=== PATIENT | female | born 1955 | race Caucasian/White ===

== ENCOUNTER 2022-01-10 13:24 | Inpatient (IN) | payer OTHER ==
[~2022-01-10] VITALS: Ht 165.1 cm; Wt 90.7 kg
[2022-01-10] MEDS: BLOOD SUGAR DIAGNOSTIC STRIP TEST SCH
[2022-01-10] MEDS: GUAIFENESIN/DM 600MG/30MG ER TAB 12HR PO SCH
[2022-01-10] MEDS ORDERED: ALBUTEROL (0.083%) 2.5MG/3ML NEB HHN STA ×2 (13:45→17:29)
[2022-01-10] MEDS ORDERED: IPRATROPIUM BROMIDE (0.02%) 0.5MG/2.5ML NEB HHN STA ×2 (13:45→17:29)
[2022-01-10 14:14] LABS: BASOPHILS % 0.3 % (0.0-2.0); EOSINOPHILS % 3.2 % (0.0-5.0); HEMOGLOBIN. 12.7 g/dL (12.0-16.0); MEAN CORPUSCULAR HEMOGLOBIN 28.9 pg (28.0-32.0); MEAN CORPUSCULAR VOLUME 86.6 fL (81.0-99.0); MEAN PLATELET VOLUME 7.9 fl (7.4-10.4); MONOCYTES % 5.1 % (2.0-8.0); NEUTROPHILS % 72.4 % (40.0-76.0); PLATELET 256 x1000/uL (130-400); RED BLOOD CELL COUNT 4.39 mill/uL (4.2-5.4); RED CELL DISTRIBUTION WIDTH 13.8 % (11.6-14.6)
[2022-01-10 14:15] LABS: CHLORIDE 100 mEq/L (98-107)
[2022-01-10] MEDS ORDERED: IPRATROPIUM BROMIDE (0.02%) 0.5MG/2.5ML NEB HHN NR (17:00)
[2022-01-10] MEDS ORDERED: ALBUTEROL (0.083%) 2.5MG/3ML NEB HHN NR (17:00)
[2022-01-10] MEDS ORDERED: MAGNESIUM 2 G PREMIX 50 ML IV STA (17:29)
[2022-01-10] MEDS ORDERED: DEXTROSE 50% WATER 50ML SYRINGE IV PRN (19:30)
[2022-01-10] MEDS ORDERED: NITROGLYCERIN 0.4MG TABLET SL SL PRN (19:30)
[2022-01-10] MEDS ORDERED: CLONIDINE 0.1MG TABLET PO PRN (19:30)
[2022-01-10] MEDS ORDERED: IPRATROPIUM/ALBUTEROL 0.5-3(2.5)MG/3ML NEB NEB PRN (19:30)
[2022-01-10] MEDS ORDERED: ACETAMINOPHEN 325MG TABLET PO PRN ×2 (19:30)
[2022-01-10] MEDS ORDERED: ONDANSETRON HCL 4MG/2ML INJ IV PRN (19:30)
[2022-01-10] MEDS ORDERED: MAGNESIUM/ALUMINUM HYDROXIDE/SIMETHICONE 30ML UDC PO PRN (19:30)
[2022-01-10] MEDS ORDERED: LEVOFLOXACIN 500MG PREMIX 100 ML IV SCH (20:00)
[2022-01-10 20:28] LABS: FOLIC ACID (FOLATE) SERUM 13.9 ng/mL (>5.38)
[2022-01-10] MEDS ORDERED: ZOLPIDEM TARTRATE 5MG TABLET PO PRN (21:00)
[2022-01-10] MEDS ORDERED: INSULIN LISPRO 100 UNITS/ML SUBCUT SCH (21:00)
[2022-01-10 21:51] LABS: *AMPHETAMINES SCREEN URINE NEGATIVE (NEGATIVE); *BARBITURATES SCREEN URINE NEGATIVE (NEGATIVE); *BENZODIAZEPINES SCREEN URINE NEGATIVE (NEGATIVE); *COCAINE SCREEN URINE NEGATIVE (NEGATIVE); CANNABINOID URINE SCREEN NEGATIVE (NEGATIVE); METHADONE URINE SCREEN NEGATIVE (NEGATIVE); OPIATES URINE SCREEN NEGATIVE (NEGATIVE); PHENCYCLIDINE URINE SCREEN NEGATIVE (NEGATIVE)
[2022-01-10] MEDS ORDERED: METHYLPREDNISOLONE SOD SUCC 125 MG/2 ML VIAL IV SCH (22:00)
[2022-01-11] VITALS: BP 137/69
[2022-01-11] MEDS ORDERED: ALBU18HF2 IH (00:28)
[2022-01-11] MEDS ORDERED: INSU100V37 SQ (00:28)
[2022-01-11] MEDS ORDERED: FLUT1BLS3 INH (00:28)
[2022-01-11] MEDS ORDERED: THEO400T PO (00:28)
[2022-01-11] MEDS ORDERED: PANT40TA51 PO (00:28)
[2022-01-11] MEDS ORDERED: IPRA3AMP31 IH (00:28)
[2022-01-11] MEDS ORDERED: ASPI-867 MT (00:28)
[2022-01-11] MEDS ORDERED: UMEC1DIS INH (00:28)
[2022-01-11] MEDS ORDERED: MELO-106 PO (00:28)
[2022-01-11] MEDS ORDERED: INSU100V51 (00:28)
[2022-01-11] MEDS ORDERED: AZEL137S7 NS (00:28)
[2022-01-11] MEDS: INSULIN LISPRO 100 UNITS/ML SUBCUT SCH ×5 (00:54→21:34)
[2022-01-11] MEDS: ENOXAPARIN 40MG/0.4ML SYR SUBCUT SCH ×2 (00:56→21:35)
[2022-01-11] MEDS: DILTIAZEM HCL 60MG TABLET PO SCH ×4 (00:56→18:21)
[2022-01-11] MEDS: FAMOTIDINE 20MG TABLET PO SCH ×3 (00:57→21:35)
[2022-01-11] MEDS ORDERED: *PATIENT'S OWN MEDICATION STORAGE XX SCH (01:30)
[2022-01-11] MEDS: LEVOFLOXACIN 500MG PREMIX 100 ML IV SCH (01:55)
[2022-01-11 04:00] VITALS: BP 117/80
[2022-01-11] MEDS: BLOOD SUGAR DIAGNOSTIC STRIP TEST SCH ×4 (06:38→21:33)
[2022-01-11] MEDS: METHYLPREDNISOLONE SOD SUCC 125 MG/2 ML VIAL IV SCH ×3 (06:38→21:38)
[2022-01-11] MEDS: IPRATROPIUM/ALBUTEROL 0.5-3(2.5)MG/3ML NEB HHN SCH ×5 (07:45→23:55)
[2022-01-11 08:00] VITALS: BP 143/56
[2022-01-11] MEDS: GUAIFENESIN/DM 600MG/30MG ER TAB 12HR PO SCH ×2 (09:00→21:00)
[2022-01-11] MEDS: ASPIRIN 325MG EC TABLET PO SCH (09:06)
[2022-01-11 12:00] VITALS: BP 127/77
[2022-01-11 16:00] VITALS: BP 116/56
[2022-01-11] MEDS: GUAIFENESIN 200MG/10ML SUGAR FREE UDC PO PRN ×2 (18:13→21:35)
[2022-01-11 20:00] VITALS: BP 113/51
[2022-01-12] VITALS: BP 123/57
[2022-01-12] MEDS: DILTIAZEM HCL 60MG TABLET PO SCH ×5 (00:38→23:59)
[2022-01-12] MEDS: LEVOFLOXACIN 500MG PREMIX 100 ML IV SCH (02:16)
[2022-01-12] MEDS: IPRATROPIUM/ALBUTEROL 0.5-3(2.5)MG/3ML NEB HHN SCH ×4 (03:49→19:50)
[2022-01-12 04:00] VITALS: BP 140/68
[2022-01-12] MEDS: METHYLPREDNISOLONE SOD SUCC 125 MG/2 ML VIAL IV SCH (05:48)
[2022-01-12] MEDS: GUAIFENESIN 200MG/10ML SUGAR FREE UDC PO PRN ×2 (05:52→08:50)
[2022-01-12] MEDS: INSULIN LISPRO 100 UNITS/ML SUBCUT SCH ×4 (06:12→20:40)
[2022-01-12] MEDS: BLOOD SUGAR DIAGNOSTIC STRIP TEST SCH ×4 (07:20→21:00)
[2022-01-12 08:00] VITALS: BP 141/71
[2022-01-12] MEDS: ASPIRIN 325MG EC TABLET PO SCH (08:51)
[2022-01-12] MEDS: FAMOTIDINE 20MG TABLET PO SCH ×2 (08:51→21:30)
[2022-01-12] MEDS: GUAIFENESIN/DM 600MG/30MG ER TAB 12HR PO SCH ×2 (09:00→21:30)
[2022-01-12] MEDS ORDERED: INSULIN GLARGINE 100 UNITS/ML SUBCUT SCH (10:30)
[2022-01-12 12:00] VITALS: BP 150/55
[2022-01-12] MEDS: METHYLPREDNISOLONE SOD SUCC 40 MG/ML VIAL IV SCH ×2 (13:12→21:30)
[2022-01-12] MEDS ORDERED: INSULIN LISPRO 100 UNITS/ML SUBCUT NR (13:30)
[2022-01-12 16:00] VITALS: BP 132/60
[2022-01-12 20:00] VITALS: BP 152/73
[2022-01-12] MEDS: INSULIN GLARGINE 100 UNITS/ML SUBCUT SCH (21:27)
[2022-01-12] MEDS: ENOXAPARIN 40MG/0.4ML SYR SUBCUT SCH (21:29)
[2022-01-13] VITALS: BP 125/57
[2022-01-13] MEDS: IPRATROPIUM/ALBUTEROL 0.5-3(2.5)MG/3ML NEB HHN SCH ×6 (00:19→20:57)
[2022-01-13 04:00] VITALS: BP 135/58
[2022-01-13] MEDS: METHYLPREDNISOLONE SOD SUCC 40 MG/ML VIAL IV SCH (05:53)
[2022-01-13] MEDS: DILTIAZEM HCL 60MG TABLET PO SCH ×3 (06:15→17:17)
[2022-01-13] MEDS: BLOOD SUGAR DIAGNOSTIC STRIP TEST SCH ×4 (06:18→21:00)
[2022-01-13 07:31] LABS: HEMATOCRIT 36.9 % (36.0-48.0); HEMOGLOBIN 12.2 g/dL (12.0-16.0); MEAN CORPUSCULAR HEMOGLOBIN 29.2 pg (28.0-32.0); PLATELET 249 x1000/uL (130-400); RED BLOOD CELL COUNT 4.19 mill/uL (4.2-5.4); RED CELL DISTRIBUTION WIDTH 13.5 % (11.6-14.6)
[2022-01-13 08:00] VITALS: BP 126/57
[2022-01-13] MEDS: ASPIRIN 325MG EC TABLET PO SCH (08:10)
[2022-01-13] MEDS: FAMOTIDINE 20MG TABLET PO SCH ×2 (08:10→21:00)
[2022-01-13] MEDS: GUAIFENESIN 200MG/10ML SUGAR FREE UDC PO PRN (08:10)
[2022-01-13] MEDS: INSULIN LISPRO 100 UNITS/ML SUBCUT SCH ×4 (08:11→21:00)
[2022-01-13 08:15] LABS: CHLORIDE 97 mEq/L (98-107)
[2022-01-13] MEDS: GUAIFENESIN/DM 600MG/30MG ER TAB 12HR PO SCH ×2 (08:16→21:00)
[2022-01-13] MEDS: INSULIN GLARGINE 100 UNITS/ML SUBCUT SCH ×2 (10:24→21:54)
[2022-01-13] MEDS ORDERED: LEVOFLOXACIN 500MG TABLET PO SCH (11:00)
[2022-01-13 12:00] VITALS: BP 144/62
[2022-01-13] MEDS: PREDNISONE 20MG TABLET PO SCH (12:21)
[2022-01-13 16:00] VITALS: BP 120/49
[2022-01-13] MEDS: DOCUSATE SODIUM 100MG CAPSULE PO PRN (17:58)
[2022-01-13 20:00] VITALS: BP 123/66
[2022-01-13] MEDS: ENOXAPARIN 30MG/0.3ML SYR SUBCUT SCH (21:00)
[2022-01-14] VITALS: BP 136/58
[2022-01-14 04:00] VITALS: BP 150/53
[2022-01-14] MEDS: IPRATROPIUM/ALBUTEROL 0.5-3(2.5)MG/3ML NEB HHN SCH ×4 (04:00→13:32)
[2022-01-14] MEDS: DILTIAZEM HCL 60MG TABLET PO SCH ×3 (05:35→12:50)
[2022-01-14] MEDS: BLOOD SUGAR DIAGNOSTIC STRIP TEST SCH ×2 (06:13→12:36)
[2022-01-14 08:00] VITALS: BP 106/67
[2022-01-14] MEDS: ASPIRIN 325MG EC TABLET PO SCH (08:59)
[2022-01-14] MEDS: FAMOTIDINE 20MG TABLET PO SCH (08:59)
[2022-01-14] MEDS: GUAIFENESIN/DM 600MG/30MG ER TAB 12HR PO SCH (08:59)
[2022-01-14] MEDS: PREDNISONE 20MG TABLET PO SCH (09:14)
[2022-01-14] MEDS: DOCUSATE SODIUM 100MG CAPSULE PO PRN (09:14)
[2022-01-14] MEDS: ENOXAPARIN 30MG/0.3ML SYR SUBCUT SCH (09:15)
[2022-01-14] MEDS: INSULIN LISPRO 100 UNITS/ML SUBCUT SCH ×2 (09:20→13:16)
[2022-01-14] MEDS: INSULIN GLARGINE 100 UNITS/ML SUBCUT SCH (10:58)
[2022-01-14] MEDS ORDERED: LEVO500T90 MT (11:10)
[2022-01-14] MEDS ORDERED: P20 MT (11:10)
[2022-01-14] MEDS ORDERED: FLUT1BLS3 INH (11:10)
[2022-01-14 12:00] VITALS: BP 149/79
[2022-01-14] MEDS ORDERED: INSULIN LISPRO 100 UNITS/ML SUBCUT SCH (12:20)
[2022-01-14 16:00] VITALS: BP 166/82
[2022-01-14 16:34] VITALS: BP 149/79
[2022-01-14] MEDS ORDERED: ATORVASTATIN CALCIUM 20MG TABLET PO SCH (21:00)
== END 2022-01-14 17:40 | disposition home or self-care (01) | DRG 189 ==
LOC: ER 13:48 → EDBEDREQ 16:58 → 6EST 18:49 → EDBEDREQTM 18:55 → EDBEDREQ 18:55 → SUPCPDRO 19:19 → ENRESERV 19:58 → ER 21:56
PROVIDERS: ADMIT Internal Medicine; ATTEND Internal Medicine
DX: J96.01 Acute respiratory failure with hypoxia (principal); J44.1 Chronic obstructive pulmonary disease with (acute) exacerbation; E44.1 Mild protein-calorie malnutrition; E66.2 Morbid (severe) obesity with alveolar hypoventilation; Z20.822 Contact with and (suspected) exposure to COVID-19; E11.65 Type 2 diabetes mellitus with hyperglycemia; I10 Essential (primary) hypertension; Z68.33 Body mass index [BMI] 33.0-33.9, adult; E78.5 Hyperlipidemia, unspecified; F17.210 Nicotine dependence, cigarettes, uncomplicated; Z99.81 Dependence on supplemental oxygen; Z59.00 Homelessness unspecified; Z88.8 Allergy status to other drugs, medicaments and biological substances; Z82.49 Family history of ischemic heart disease and other diseases of the circulatory system
CPT/HCPCS: 36415; 71045; 80048; 80053; 80061; 80305; 82607; 82746; 82962; 83036; 83540; 83550; 83880; 84443; 84484; 85025; 85027; 87426; 93005; 93306; 93970; 94640; 97162; 97165; 97535; 99285; C1893; C9803; J1650; J1815; J1956; J2920; J2930; J3475; J7512

== ENCOUNTER 2022-01-15 12:18 | Inpatient (IN) | payer OTHER ==
[~2022-01-15] VITALS: Ht 160 cm; Wt 113.4 kg
[~2022-01-15 12:18] MED LIST: ALBU18HF2 IH; ASPI-867 MT; AZEL137S7 NS; FLUT1BLS3 INH; INSU100V37 SQ; INSU100V51; IPRA3AMP31 IH; LEVO500T90 MT; MELO-106 PO; P20 MT; PANT40TA51 PO; THEO400T PO
[2022-01-15] MEDS ORDERED: ASPIRIN 81MG TABLET PO ONE (14:30)
[2022-01-15] MEDS ORDERED: ASPIRIN 81MG TABLET PO NR (14:30)
[2022-01-15 14:59] LABS: BASOPHILS % 0.9 % (0.0-2.0); EOSINOPHILS % 0.3 % (0.0-5.0); HEMATOCRIT. 40.3 % (36.0-48.0); HEMOGLOBIN. 13.3 g/dL (12.0-16.0); LYMPHOCYTES % 24.5 % (20.0-50.0); MEAN CORPUSCULAR HEMOGLOBIN 28.8 pg (28.0-32.0); MEAN CORPUSCULAR VOLUME 87.3 fL (81.0-99.0); MEAN PLATELET VOLUME 7.3 fl (7.4-10.4); MONOCYTES % 6.9 % (2.0-8.0); NEUTROPHILS % 67.4 % (40.0-76.0); PLATELET 251 x1000/uL (130-400); RED BLOOD CELL COUNT 4.61 mill/uL (4.2-5.4); RED CELL DISTRIBUTION WIDTH 13.5 % (11.6-14.6)
[2022-01-15 15:00] LABS: CHLORIDE 96 mEq/L (98-107)
[2022-01-15 15:06] LABS: D-DIMER 0.84 mg/L FEU (<0.50); PARTIAL THROMBOPLASTIN TIME 23.7 sec (23.4-31.0); PROTHROMBIN TIME 10.6 sec (9.6-11.0)
[2022-01-15 15:09] LABS: BETA HYDROXYBUTYRATE 0.1 mMol/L (0.0-0.3)
[2022-01-15] MEDS ORDERED: IOHEXOL-350 100 ML BOTTLE ONE (17:50)
[2022-01-15] MEDS ORDERED: ONDANSETRON HCL 4MG/2ML INJ IV PRN (19:15)
[2022-01-15] MEDS ORDERED: LORAZEPAM 0.5MG TABLET PO PRN (19:15)
[2022-01-15] MEDS ORDERED: HYDROCODONE/ACETAMINOPHEN 5/325MG TABLET PO PRN (19:15)
[2022-01-15] MEDS ORDERED: ACETAMINOPHEN 325MG TABLET PO PRN ×2 (19:15)
[2022-01-15] MEDS ORDERED: CLONIDINE 0.1MG TABLET PO PRN (19:15)
[2022-01-15] MEDS ORDERED: DOCUSATE SODIUM 100MG CAPSULE PO PRN (19:15)
[2022-01-15] MEDS ORDERED: NALOXONE HCL 0.4MG/ML VIAL IV PRN (19:30)
[2022-01-15] MEDS ORDERED: SODIUM CHLORIDE 0.9% 1000ML BAG (SEPSIS BOLUS) IV ONE (20:15)
[2022-01-15] MEDS ORDERED: CEFTRIAXONE 1 G PREMIX 50 ML IV ONE (20:15)
[2022-01-15] MEDS ORDERED: AZITHROMYCIN 500MG/250ML 250 ML IV ONE (20:15)
[2022-01-15] MEDS: IPRATROPIUM/ALBUTEROL 0.5-3(2.5)MG/3ML NEB HHN PRN (20:32)
[2022-01-15 23:13] LABS: CLARITY URINE CLEAR (CLEAR); COLOR URINE YELLOW (YELLOW); KETONES URINE NEGATIVE (NEGATIVE); LEUKOCYTE ESTERASE URINE 1+ (NEGATIVE); NITRITE URINE NEGATIVE (NEGATIVE); OCCULT BLOOD URINE NEGATIVE (NEGATIVE); PH URINE 6.5 (4.5-8.0); PROTEIN URINE TRACE (NEGATIVE); SPECIFIC GRAVITY URINE 1.024 (1.005-1.030)
[2022-01-15 23:33] LABS: *AMPHETAMINES SCREEN URINE NEGATIVE (NEGATIVE); *BARBITURATES SCREEN URINE NEGATIVE (NEGATIVE); *BENZODIAZEPINES SCREEN URINE NEGATIVE (NEGATIVE); *COCAINE SCREEN URINE NEGATIVE (NEGATIVE); CANNABINOID URINE SCREEN NEGATIVE (NEGATIVE); METHADONE URINE SCREEN NEGATIVE (NEGATIVE); OPIATES URINE SCREEN NEGATIVE (NEGATIVE); PHENCYCLIDINE URINE SCREEN NEGATIVE (NEGATIVE)
[2022-01-16] MEDS ORDERED: DEXTROSE 50% WATER 50ML SYRINGE IV PRN (04:30)
[2022-01-16] MEDS: BLOOD SUGAR DIAGNOSTIC STRIP TEST SCH ×5 (04:33→21:59)
[2022-01-16] MEDS: INSULIN LISPRO 100 UNITS/ML SUBCUT SCH ×5 (04:56→21:59)
[2022-01-16 04:59] LABS: HEMATOCRIT. 39.7 % (36.0-48.0); HEMOGLOBIN. 13.1 g/dL (12.0-16.0); MEAN CORPUSCULAR HEMOGLOBIN 28.6 pg (28.0-32.0); MEAN CORPUSCULAR VOLUME 86.5 fL (81.0-99.0); MEAN PLATELET VOLUME 7.1 fl (7.4-10.4); PLATELET 236 x1000/uL (130-400); RED BLOOD CELL COUNT 4.59 mill/uL (4.2-5.4); RED CELL DISTRIBUTION WIDTH 13.8 % (11.6-14.6)
[2022-01-16 05:01] LABS: CHLORIDE 102 mEq/L (98-107)
[2022-01-16 05:10] VITALS: BP 144/75
[2022-01-16] MEDS ORDERED: INSULIN LISPRO 100 UNITS/ML SUBCUT SCH (07:00)
[2022-01-16 08:07] VITALS: BP 149/71
[2022-01-16 09:01] LABS: PLATELET ESTIMATE NORMAL
[2022-01-16 12:00] VITALS: BP 139/75
[2022-01-16 16:00] VITALS: BP 128/85
[2022-01-16] MEDS: PANTOPRAZOLE 40MG DR TABLET PO SCH (16:11)
[2022-01-16] MEDS ORDERED: THEOPHYLLINE ANHYDROUS 80 MG/15 ML 120ML PO SCH (17:00)
[2022-01-16 20:00] VITALS: BP 126/95
[2022-01-16] MEDS: IPRATROPIUM/ALBUTEROL 0.5-3(2.5)MG/3ML NEB HHN PRN (20:51)
[2022-01-16] MEDS: INSULIN GLARGINE 100 UNITS/ML SUBCUT SCH (21:59)
[2022-01-17] VITALS: BP 144/68
[2022-01-17 04:00] VITALS: BP 138/82
[2022-01-17] MEDS: BLOOD SUGAR DIAGNOSTIC STRIP TEST SCH ×4 (06:32→21:53)
[2022-01-17 08:00] VITALS: BP 159/88
[2022-01-17] MEDS: ASPIRIN 325MG EC TABLET PO SCH (08:50)
[2022-01-17] MEDS: INSULIN LISPRO 100 UNITS/ML SUBCUT SCH ×4 (08:50→21:00)
[2022-01-17] MEDS: PANTOPRAZOLE 40MG DR TABLET PO SCH (08:50)
[2022-01-17] MEDS: METHYLPREDNISOLONE SOD SUCC 40 MG/ML VIAL IV SCH ×2 (10:49→18:00)
[2022-01-17] MEDS: INSULIN GLARGINE 100 UNITS/ML SUBCUT SCH ×2 (10:49→21:53)
[2022-01-17] MEDS: CEFTRIAXONE 1,000 MG in DEXTROSE 5% WATER 50 ML IV SCH (10:51)
[2022-01-17 12:00] VITALS: BP 101/51
[2022-01-17] MEDS: IPRATROPIUM/ALBUTEROL 0.5-3(2.5)MG/3ML NEB HHN SCH ×2 (14:15→21:20)
[2022-01-17 16:00] VITALS: BP 111/46
[2022-01-17 20:00] VITALS: BP 138/66
[2022-01-18] VITALS: BP 137/78
[2022-01-18] MEDS: IPRATROPIUM/ALBUTEROL 0.5-3(2.5)MG/3ML NEB HHN SCH ×4 (01:01→14:58)
[2022-01-18] MEDS: METHYLPREDNISOLONE SOD SUCC 40 MG/ML VIAL IV SCH ×2 (01:54→09:36)
[2022-01-18 04:00] VITALS: BP 135/75
[2022-01-18] MEDS: BLOOD SUGAR DIAGNOSTIC STRIP TEST SCH ×4 (06:18→21:09)
[2022-01-18 08:00] VITALS: BP 109/74
[2022-01-18] MEDS: FAMOTIDINE 20MG TABLET PO SCH ×2 (08:27→16:58)
[2022-01-18] MEDS: ASPIRIN 325MG EC TABLET PO SCH (08:28)
[2022-01-18] MEDS: INSULIN LISPRO 100 UNITS/ML SUBCUT SCH ×4 (08:30→21:00)
[2022-01-18] MEDS: INSULIN GLARGINE 100 UNITS/ML SUBCUT SCH ×2 (09:19→21:09)
[2022-01-18] MEDS: CEFTRIAXONE 1,000 MG in DEXTROSE 5% WATER 50 ML IV SCH (09:36)
[2022-01-18 12:00] VITALS: BP 129/73
[2022-01-18 16:00] VITALS: BP 145/73
[2022-01-18] MEDS ORDERED: GUAIFENESIN-DM 200MG-20MG/10ML UDC PO PRN (18:30)
[2022-01-18 20:00] VITALS: BP 116/62
[2022-01-19] VITALS: BP 118/62
[2022-01-19 04:00] VITALS: BP 145/73
[2022-01-19] MEDS: BLOOD SUGAR DIAGNOSTIC STRIP TEST SCH ×2 (06:28→12:11)
[2022-01-19 08:00] VITALS: BP 111/45
[2022-01-19] MEDS: FAMOTIDINE 20MG TABLET PO SCH (08:04)
[2022-01-19] MEDS: CEFTRIAXONE 1,000 MG in DEXTROSE 5% WATER 50 ML IV SCH (08:04)
[2022-01-19] MEDS: ASPIRIN 325MG EC TABLET PO SCH (08:04)
[2022-01-19] MEDS: INSULIN LISPRO 100 UNITS/ML SUBCUT SCH ×2 (08:21→12:29)
[2022-01-19] MEDS ORDERED: PREDNISONE 20MG TABLET PO SCH (09:00)
[2022-01-19] MEDS: INSULIN GLARGINE 100 UNITS/ML SUBCUT SCH (10:27)
[2022-01-19 10:35] VITALS: BP 111/45
[2022-01-19] MEDS ORDERED: P20 PO (10:39)
[2022-01-19] MEDS ORDERED: PHENOL/SODIUM PHENOLATE 1.4% SRPAY 177ML MM NR (10:45)
[2022-01-19] MEDS: IPRATROPIUM/ALBUTEROL 0.5-3(2.5)MG/3ML NEB HHN SCH (11:20)
== END 2022-01-19 13:13 | disposition home or self-care (01) | DRG 189 ==
LOC: ER 12:30 → EDBEDREQ 18:21 → EDBEDREQTM 18:21 → MICUSO 23:18 → 6WST 01-16 05:13 → 6EST 01-17 17:10
PROVIDERS: ADMIT Internal Medicine; ATTEND Internal Medicine
DX: J96.21 Acute and chronic respiratory failure with hypoxia (principal); J44.1 Chronic obstructive pulmonary disease with (acute) exacerbation; N39.0 Urinary tract infection, site not specified; Z68.41 Body mass index [BMI] 40.0-44.9, adult; J96.22 Acute and chronic respiratory failure with hypercapnia; E11.36 Type 2 diabetes mellitus with diabetic cataract; Z20.822 Contact with and (suspected) exposure to COVID-19; E11.65 Type 2 diabetes mellitus with hyperglycemia; E66.01 Morbid (severe) obesity due to excess calories; H26.9 Unspecified cataract; D70.9 Neutropenia, unspecified; I10 Essential (primary) hypertension; R74.01 Elevation of levels of liver transaminase levels; Z88.8 Allergy status to other drugs, medicaments and biological substances; Z59.00 Homelessness unspecified; Z99.81 Dependence on supplemental oxygen; Z79.4 Long term (current) use of insulin
CPT/HCPCS: 36415; 71045; 71275; 80048; 80053; 80305; 81003; 82010; 82962; 83605; 83880; 84484; 85025; 85379; 87426; 93005; 94640; 99285; J0456; J0696; J1815; J2920; J7030; J7060; J7512; Q9967